=== PATIENT | male | born 1995 | race Caucasian/White ===

== ENCOUNTER 2021-10-01 09:25 | Emergency (ER) | payer SELFPAY ==
[~2021-10-01] VITALS: Ht 175.3 cm; Wt 83.9 kg
[2021-10-01 09:42] VITALS: BP 131/76
--- NOTE | 2021-10-01 09:46 | NUR ---
PT AMBULATED TO LOBBY WITH STEADY GAIT
--- NOTE | 2021-10-01 12:18 | NUR ---
PATIENT LEFT WITHOUT BEING SEEN BY DR. Galvez. NO FURTHER CARE PROVIDED FOR PATIENT.
== END 2021-10-01 12:18 | disposition left against medical advice (07) ==
LOC: MED 09:25
DX: R11.0 Nausea (principal); R10.9 Unspecified abdominal pain; Z53.21 Procedure and treatment not carried out due to patient leaving prior to being seen by health care provider